=== PATIENT | male | born 2000 | race Caucasian/White ===

== ENCOUNTER 2022-09-14 14:51 | Emergency (ER) | payer BC, SELFPAY ==
--- NOTE | ~2022-09-14 | XR_ITS ---
EXAMINATION: XR chest 2V 09/14/2022 16:09 INDICATION: Chest pain PROCEDURE: 2 view chest COMPARISON: No prior studies for comparison. FINDINGS: The lungs are clear. The cardiomediastinal silhouette is within normal limits. There are no pleural effusions. There is no pneumothorax suspected. Port catheter tip in the SVC. There are H chao rods overlying the thoracic spine. There is scoliosis. IMPRESSION: 1: NO ACUTE CARDIOPULMONARY DISEASE. Reviewed, dictated and finalized at location A.
[2022-09-14 15:06] VITALS: BP 102/67; PULSE 92; RESP 16; TEMP 36.8; O2SAT 99
--- NOTE | 2022-09-14 15:18 | ECG_ITS ---
Measurements Intervals [place] Rate: 88 P: 67 CO: 122 QRS: 11 QRSD: 104 T: 86 QT: 334 QTc: 405 Interpretive Statements SINUS RHYTHM WITH SINUS ARRHYTHMIA POSSIBLE LEFT ATRIAL ENLARGEMENT INCOMPLETE RIGHT BUNDLE BRANCH BLOCK HIGH LATERAL INFARCT, AGE INDETERMINATE BASELINE WANDER- I, II, III, AVR, AVL ABNORMAL ECG NO PREVIOUS ECG AVAILABLE FOR COMPARISON Electronically Signed On 09-14-2022 20:05:33 CDT by Justin Acevedo D.O.
[2022-09-14 15:37] LABS: Basophils Percent Auto 0.5 % (0.2-1.2); Eosinophils Absolute Auto 0.1 K/mm3 (0-0.3); Eosinophils Percent Auto 0.8 % (0-4.4); Hematocrit 32.7 % (42.0-52.0); Hemoglobin 10.6 g/dL (14.0-18.0); Immature Granulocyte Absolute 0.01 K/mm3 (0.00-0.031); Immature Granulocyte Percent A 0.2 % (0-0.5); Lymphocytes Absolute Auto 1.76 K/mm3 (0.9-3.2); Lymphocytes Percent Auto 27.5 % (18.3-44.2); Mean Corpuscular HGB Conc 32.4 g/dl (32-36); Mean Corpuscular Hemoglobin 31.7 pg (26-34); Mean Corpuscular Volume 97.9 fl (80-100); Mean Platelet Volume 10.2 fl (7.4-10.4); Monocytes Absolute Auto 0.5 K/mm3 (0.1-0.6); Monocytes Percent Auto 7.3 % (2.6-8.5); Neutrophils Absolute Auto 4.1 K/mm3 (1.3-6.7); Neutrophils Percent Auto 63.7 % (45.5-73.1); Platelet Count Result 247 k/mm3 (150-375); Red Blood Count 3.34 M/mm3 (4.6-6.20); Red Cell Distribution Width 12.9 % (11.5-14.5); White Blood Count 6.4 K/mm3 (4.5-10.0)
[2022-09-14 15:47] LABS: Alanine Aminotransferase 28 U/L (6-50); Albumin Level 4.8 g/dL (3.5-5.1); Alkaline Phosphatase 83 U/L (38-126); Anion Gap 11 mmol/L (8-16); Aspartate Amino Transferase 35 U/L (17-59); Bilirubin,Total 0.8 mg/dL (0.2-1.3); Blood Urea Nitrogen 35 mg/dL (9-20); Calcium 9.6 mg/dL (8.4-10.2); Carbon Dioxide 26 mmol/L (22-30); Chloride 100 mmol/L (98-107); Estimated CRCL calculation 130 ml/min; Estimated Glomerular Filt Rate > 60; Glucose 105 mg/dL (65-110); INR 1.1; Lipase 109 U/L (23-300); Potassium 4.9 mmol/L (3.4-5.0); Prothrombin Time 15.3 Seconds (11.1-14.7); Sodium 137 mmol/L (137-145)
[2022-09-14 15:48] LABS: Partial Thromboplastin Time 36.7 SECONDS (22.3-36.8)
[2022-09-14 15:59] LABS: Troponin I < 0.012 ng/mL (0.000-0.034)
[2022-09-14 17:45] VITALS: BP 105/66; PULSE 86; O2SAT 100
--- NOTE | 2022-09-14 18:47 | ED.CHESTPAIN ---
HPI - Chest Pain General Chief Complaint: Chest Pain Stated Complaint: chest pain Time Seen by Provider: 09/14/22 18:21 History of Present Illness HPI narrative: This is a 21-year-old male, with past medical history of Duchenne's muscular dystrophy, who presents emergency department complaining of intermittent chest pain over the past several days the patient notes the pain has been in multiple different locations, is described as sharp and cramping and is aggravated with certain movements as well as direct pressure. He denies any associated nausea or vomiting. He states he feels he has been anxious but denies difficulty breathing. Review of Systems Review of Systems: CONSTITUTIONAL: Denies fever, chills, or sweats. CARDIOVASCULAR: Intermittent chest pain denies palpitations, or edema. RESPIRATORY: Denies cough or dyspnea. GASTROINTESTINAL: Denies abdominal pain, nausea, vomiting, or diarrhea. GENITOURINARY: Denies dysuria or hematuria. SKIN: Denies rash or itching. MUSCULOSKELETAL: Denies back pain, joint pain, or myalgia. NEUROLOGIC: Denies headache, numbness, dizziness, or weakness. PSYCHIATRIC: Denies anxiety or depression. FORMERLY [facility] Past Medical History Medical History Duchenne muscular dystrophy Surgical History Surgical History No significant past surgical history Social History Social History (Updated 09/14/22 @ 20:39 by Quinten Maldonado MD) Smoking status: Never smoker Alcohol intake: never Substance use: never Exam Narrative: GENERAL: Well-developed, thin, and in no acute distress. Wheelchair-bound HEAD: Normocephalic, atraumatic. EYES: PERRLA and EOMI. ENT: Nares clear, no rhinorrhea or epistaxis. Mucous membranes moist. Oropharynx without tonsillar hypertrophy exudate or other lesions. Low-frequency tongue fasciculations noted NECK: Supple. No adenopathy or masses. No JVD CHEST: Clear to auscultation. No respiratory distress. No wheezes rales or rhonchi HEART: Regular rate and rhythm. No murmur heard. Normal peripheral pulses. ABDOMEN: Soft, nontender, nondistended, normal active bowel sounds. EXTREMITIES: Normal range of motion. No edema. SKIN: Warm, dry, no rash. NEURO: Alert and oriented x3. Strength 4+/5 in the bilateral upper extremities, strength 1/5 in the bilateral lower extremities. Sensation intact PSYCH: Normal mood and affect. Course Course Emergency Course: 18:49 - EKG not concerning for ischemia. Troponin negative. CBC demonstrates normocytic anemia with hemoglobin of 10.6 but is otherwise unremarkable. Chemistries unremarkable. Chest x-ray not concerning for acute cardiothoracic process. Heart score 1. I suspect musculoskeletal cause for the patient's pain. I do not suspect ACS. I advised patient follow-up with his primary care doctor. Discussed return and emergency precautions including signs/symptoms of ACS and respiratory distress. The patient voiced understanding and is comfortable with the plan. All questions answered to his satisfaction peer Vital Signs Vital signs: Vital Signs Temperature 98.2 F 09/14/22 15:06 Pulse Rate 92 09/14/22 15:06 Respiratory Rate 16 09/14/22 15:06 Blood Pressure 102/67 09/14/22 15:06 Pulse Oximetry 99 09/14/22 15:06 Oxygen Delivery Room Air 09/14/22 15:06 Temperature 98.2 F 09/14/22 15:06 Pulse Rate 90 09/14/22 19:15 Respiratory Rate 16 09/14/22 19:15 Blood Pressure 118/74 09/14/22 19:15 Pulse Oximetry 99 09/14/22 19:15 Oxygen Delivery Room Air 09/14/22 15:06 MDM - Chest Pain MDM Narrative Medical decision making narrative: Plan: Labs, imaging, EKG, troponin, reassess Differential Diagnosis Differential diagnosis: Likely fracture of rib, pneumothorax, costochondritis, chest pain and other (Metabolic abnormality, ACS, other) Lab Data 09/14/22 15:28
[2022-09-14 19:15] VITALS: BP 118/74; PULSE 90; RESP 16; O2SAT 99
== END 2022-09-14 19:16 | disposition home or self-care (01) ==
PROVIDERS: Emergency Provider Preventive Medicine Aerospace Medicine
DX: M94.0 Chondrocostal junction syndrome [Tietze] (principal); G71.01 Duchenne or Becker muscular dystrophy; I45.10 Unspecified right bundle-branch block; R94.31 Abnormal electrocardiogram [ECG] [EKG]
CPT/HCPCS: 36415; 71046; 80053; 83690; 84484; 85025; 85610; 85730; 93005; 99284